=== PATIENT | male | born 1985 | race Caucasian/White ===

== ENCOUNTER 2017-09-12 20:06 | Emergency (ER) | payer SELFPAY ==
--- NOTE | 2017-09-12 20:06 | DT_ITS ---
This patient was seen during an EMR downtime September 05, 2017 - September 12, 2017. This patient may have a combination of paper and electronic documentation or all paper documentation. All documentation is viewable within the e-chart portion of [facility] for each patient visit.
[2017-09-12 20:08] VITALS: BP 161/72; PULSE 94; RESP 16; TEMP 36.7; O2SAT 97; BMI 23.1
--- NOTE | 2017-09-12 20:39 | ED.VISSUMM ---
- ER Visit Summary Date of Service: 09/12/17 Chief Complaint: Cellulitis History of Present Illness: The patient is a 32 M who states that he had a small abrasion to his proximal right anterior ramos. He states that now it has formed a scab is been leaking some fluid and there is erythema around it he notes there is no new tattoos. Denies seeing any pus. No fevers. Physical Examination: Afebrile vital signs are stable Gen: Well-nourished well-developed Head: Normocephalic atraumatic Eyes: Perrl EOMI ENT: TMs clear no rhinorrhea moist mucous membranes Neck: Supple no lymphadenopathy no JVD nontender CVS: Regular rate rhythm no murmurs normal S1-S2 Respiratory: No distress clear to auscultation bilaterally chest nontender Abdomen: Soft nontender nondistended normal bowel sounds no masses Back: Nontender Extremity: Nontender no edema Skin: Normal color right anterior proximal third leg demonstrates an area of erythema with a central area that is scabbed over. There is no fluctuance or abscess noted. Minimally tender. No lymphangitic streaking. Neuro: alert orientated ?3 CN II-XII intact normal strength sensation reflexes gait cerebellar Psych: Normal affect normal mood Emergency Department Course and Treatment: There is no fluid to culture. Wound care discussed with patient including topical antibiotic ointment and keeping the wound covered during the day and allowed to dry at night. I will use Keflex and Bactrim for oral antibiotics return if worsening follow-up with primary care in 5-7 days. Impression: 1. Cellulitis of the right leg This note was generated with [employer] dictation software. It may contain incorrect words, spelling, and punctuation that were not noted in review of the chart prior to signing ED Disposition - Plan for ED Patient: Disposition: Home or Assisted Living Chief Complaint: Cellulitis Instructions: Discharge Instructions for Cellulitis Prescriptions: Cephalexin [Keflex] 500 mg PO Q6 #40 cap Smz/Tmp Ds [Bactrim Ds] 1 tab PO BID #20 tab Referrals: SHARIF PRITCHETT [Primary Care Provider] - 5-7 Days
[2017-09-12] MEDS: Smz/Tmp Ds Tablet 1 TABLET PO (21:03)
[2017-09-12] MEDS: Cephalexin 500 MG Capsule PO (21:03)
== END 2017-09-12 21:05 | disposition home or self-care (01) ==
LOC: ED 20:55
PROVIDERS: Emergency Provider Emergency Medicine
DX: L03.115 Cellulitis of right lower limb (principal)
CPT/HCPCS: 99283